=== PATIENT | female | born 1965 | race Two or more races ===

== ENCOUNTER 2018-06-05 04:39 | Inpatient (IN) | payer SELFPAY ==
[~2018-06-05] VITALS: Ht 162.6 cm; Wt 81.6 kg
[2018-06-05] MEDS ORDERED: cloNIDine HCL 0.1 MG TAB ONE (04:53)
[2018-06-05] MEDS ORDERED: cloNIDine HCL 0.1 MG TAB PO ONE (05:00)
[2018-06-05] MEDS ORDERED: ASPirin 81 mg TAB PO ONE ×2 (05:15→13:45)
[2018-06-05 06:14] LABS: Eosinophils # (auto) 0.2 uL; Monocytes # (auto) 0.4 uL
[2018-06-05 06:16] LABS: Basophils # (auto) 0.1 uL; Basophils % (auto) 0.7 % (0.0-2.0); Hematocrit 37.4 % (36.0-46.0); Lymphocytes # (auto) 1.7 uL; Lymphocytes % (auto) 19.9 % (10.0-50.0); Mean Corpuscular Hemoglobin 23.8 pg (28.0-32.0); Mean Corpuscular Hgb Conc. 32.1 g/dL (32.0-36.0); Monocytes % (auto) 4.9 % (0.0-12.0); Neutrophils # (auto) 6.4 uL; Neutrophils % (auto) 72.5 % (37.0-80.0); Red Blood Cells 5.05 10^6/uL (4.0-5.20); Red Cell Distribution Width 17.5 % (11.8-14.3); White Blood Cell 8.8 10^3/uL (4.4-10.8)
[2018-06-05 06:23] LABS: Platelet Count (auto) 199 10^3/uL (140-450)
[2018-06-05 06:32] LABS: INR 0.88 (0.9-1.15); Prothrombin Time 9.5 sec (9.27-12.13)
[2018-06-05 06:44] LABS: Albumin 3.7 g/dL (3.4-5.0); Anion Gap 7 (5-15); Blood Urea Nitrogen 11 mg/dL (7-18); Carbon Dioxide 25 mmol/L (21-32); Chloride 104 mmol/L (98-107); Glucose 313 mg/dL (74-106); Potassium 4.3 mmol/L (3.5-5.1); Sodium 136 mmol/L (136-145)
[2018-06-05 06:55] LABS: Alanine Aminotransferase 28 U/L (13-56); Alkaline Phosphatase 112 U/L (45-117); Aspartate Aminotransferase 39 U/L (15-37); BUN/Creatinine Ratio 16.2; Bilirubin, Total 0.3 mg/dL (0.2-1.0); GFR African American 116 mL/min; GFR Non-African American 96 mL/min; Total Protein 8.6 g/dL (6.4-8.2)
[2018-06-05] MEDS ORDERED: SODIUM CHLORIDE 0.9% 1,000 ML IV SCH (12:59)
[2018-06-05] MEDS ORDERED: PROMETHAZINE HCL 25 MG/ML 1ML IV PRN (13:00)
[2018-06-05] MEDS ORDERED: TEMAZEPAM 15 MG CAP PO PRN (13:00)
[2018-06-05] MEDS ORDERED: LORazepam 0.5 MG TAB PO PRN (13:00)
[2018-06-05] MEDS ORDERED: MORPHINE SULF INJ 2 MG/ML SYRINGE 1ML IV PRN (13:00)
[2018-06-05] MEDS ORDERED: NITROGLYCERIN 0.4 MG SL TAB SL PRN (13:00)
[2018-06-05] MEDS ORDERED: DEXTROSE (50%) 50ML SYRG IV PRN (13:00)
[2018-06-05] MEDS ORDERED: traMADol HCL 50 MG TAB PO PRN (13:00)
[2018-06-05] MEDS ORDERED: ACETAMINOPHEN 500 MG TAB PO PRN (13:00)
[2018-06-05] MEDS ORDERED: METOPROLOL TARTRATE 25 MG TAB PO ONE (13:45)
[2018-06-05] MEDS ORDERED: ENOXAPARIN SOD 40 MG/0.4 ML SYRINGE SC ONE (13:45)
[2018-06-05] MEDS ORDERED: PANTOPRAZOLE 40 MG TAB PO ONE (13:45)
[2018-06-05] MEDS ORDERED: HYDR12.56 (17:01)
[2018-06-05] MEDS ORDERED: INSLANTI (17:01)
[2018-06-05 17:14] VITALS: BP 161/74
[2018-06-05] MEDS ORDERED: InsuLIN REG 1unit/0.01ml Soln (100units/ml) SC SCH (18:00)
[2018-06-05] MEDS ORDERED: ACCU-CHEK COMFORT CURVE STRIP VI SCH (18:00)
[2018-06-05] MEDS ORDERED: METOPROLOL TARTRATE 25 MG TAB PO SCH (22:00)
[2018-06-06] MEDS ORDERED: PANTOPRAZOLE 40 MG TAB PO SCH (10:00)
[2018-06-06] MEDS ORDERED: ASPirin 81 mg TAB PO SCH (10:00)
[2018-06-06] MEDS ORDERED: ENOXAPARIN SOD 40 MG/0.4 ML SYRINGE SC SCH (10:00)
== END 2018-06-05 18:05 | disposition home or self-care (01) | DRG 313 ==
LOC: ER 04:39 → TELE 12:59
PROVIDERS: ADMIT Internal Medicine; ATTEND Internal Medicine
DX: R07.89 Other chest pain (principal); R00.2 Palpitations; E11.9 Type 2 diabetes mellitus without complications; E66.9 Obesity, unspecified; I10 Essential (primary) hypertension; I05.9 Rheumatic mitral valve disease, unspecified; Z68.30 Body mass index [BMI] 30.0-30.9, adult; Z82.49 Family history of ischemic heart disease and other diseases of the circulatory system; Z91.19 Patient's noncompliance with other medical treatment and regimen; Z83.3 Family history of diabetes mellitus; Z98.51 Tubal ligation status
CPT/HCPCS: 36415; 71045; 80053; 82550; 82962; 83036; 83880; 84443; 84484; 85025; 85379; 85610; 85730; 93306; 96360; G0378

== ENCOUNTER → 2018-07-02 | Outpatient (CLI) | payer OTHER ==
[~2018-07-02] MED LIST: HYDR12.56; INSLANTI
[2018-07-02 08:52] LABS: Basophils # (auto) 0 uL; Basophils % (auto) 0.5 % (0.0-2.0); Eosinophils # (auto) 0.2 uL; Hemoglobin 11.4 g/dL (12.2-16.2); Lymphocytes # (auto) 1.3 uL; Monocytes # (auto) 0.3 uL; Monocytes % (auto) 5.4 % (0.0-12.0); Neutrophils # (auto) 3.7 uL
[2018-07-02 08:54] LABS: Eosinophils % (auto) 3.4 % (0.0-7.0); Hematocrit 35.7 % (36.0-46.0); Lymphocytes % (auto) 23.7 % (10.0-50.0); Mean Corpuscular Hemoglobin 23.8 pg (28.0-32.0); Mean Corpuscular Hgb Conc. 31.8 g/dL (32.0-36.0); Mean Corpuscular Volume 74.7 fL (80.0-100.0); Platelet Count (auto) 179 10^3/uL (140-450); Red Blood Cells 4.78 10^6/uL (4.0-5.20); Red Cell Distribution Width 18.9 % (11.8-14.3); White Blood Cell 5.5 10^3/uL (4.4-10.8)
[2018-07-02 09:04] LABS: Albumin 3.7 g/dL (3.4-5.0); Calcium 8.8 mg/dL (8.5-10.1); Potassium 4.2 mmol/L (3.5-5.1); Uric Acid 4.6 mg/dL (2.6-6.0)
[2018-07-02 09:08] LABS: BUN/Creatinine Ratio 23.8; Bilirubin, Total 0.3 mg/dL (0.2-1.0); Total Protein 7.9 g/dL (6.4-8.2)
[2018-07-02 09:19] LABS: Urine Bacteria NONE SEEN /hpf (None Seen); Urine Blood Negative /uL (Negative); Urine Specific Gravity 1.018 (1.001-1.035); Urine WBC <1 /hpf (0 - 5)
== END | disposition home or self-care (01) ==
LOC: LAB 08:17
PROVIDERS: ATTEND Nurse Practitioner
DX: E11.9 Type 2 diabetes mellitus without complications (principal); E78.5 Hyperlipidemia, unspecified; I10 Essential (primary) hypertension
CPT/HCPCS: 36415; 80053; 80061; 81001; 82043; 82306; 83036; 84443; 84550; 85025

== ENCOUNTER → 2018-10-01 | Outpatient (CLI) | payer OTHER ==
[2018-10-01 10:09] LABS: Basophils # (auto) 0 uL; Eosinophils # (auto) 0.2 uL; Hemoglobin 12.1 g/dL (12.2-16.2); Lymphocytes # (auto) 1.7 uL; Neutrophils # (auto) 3.9 uL; Platelet Count (auto) 183 10^3/uL (140-450)
[2018-10-01 10:12] LABS: Basophils % (auto) 0.8 % (0.0-2.0); Eosinophils % (auto) 2.7 % (0.0-7.0); Hematocrit 36.2 % (36.0-46.0); Mean Corpuscular Hemoglobin 27.2 pg (28.0-32.0); Mean Corpuscular Hgb Conc. 33.4 g/dL (32.0-36.0); Mean Corpuscular Volume 81.5 fL (80.0-100.0); Monocytes # (auto) 0.4 uL; Monocytes % (auto) 5.7 % (0.0-12.0); Neutrophils % (auto) 63.8 % (37.0-80.0); Nucleated Red Blood Cells % 0.1 %; Red Blood Cells 4.44 10^6/uL (4.0-5.20); White Blood Cell 6.2 10^3/uL (4.4-10.8)
[2018-10-01 10:15] LABS: Urine Bacteria NONE SEEN /hpf (None Seen); Urine Blood 2+ /uL (Negative); Urine Specific Gravity 1.022 (1.001-1.035); Urine WBC 19 /hpf (0 - 5)
[2018-10-01 10:33] LABS: Potassium 4.3 mmol/L (3.5-5.1)
[2018-10-01 10:39] LABS: Albumin 3.5 g/dL (3.4-5.0); Bilirubin, Total 0.4 mg/dL (0.2-1.0); Calcium 8.9 mg/dL (8.5-10.1); Total Protein 7.4 g/dL (6.4-8.2)
== END | disposition home or self-care (01) ==
LOC: LAB 09:10
PROVIDERS: ATTEND Nurse Practitioner
DX: E78.5 Hyperlipidemia, unspecified (principal); E11.9 Type 2 diabetes mellitus without complications
CPT/HCPCS: 36415; 80053; 80061; 81001; 82043; 82306; 83036; 84443; 85025

== ENCOUNTER → 2018-10-07 | Outpatient (CLI) | payer OTHER ==
[2018-10-07 12:36] LABS: Follicle Stimulating Hormone 21.06 IU/L (SEE BELOW); Leuteinizing Hormone 12.9 IU/L
== END | disposition home or self-care (01) ==
LOC: LAB 10:36
PROVIDERS: ATTEND Obstetrics & Gynecology
DX: N95.1 Menopausal and female climacteric states (principal)
CPT/HCPCS: 36415; 82670; 83001; 83002; 84403; 84443

== ENCOUNTER → 2018-10-29 | Outpatient (CLI) | payer OTHER ==
[2018-10-29 09:04] LABS: Basophils # (auto) 0.1 uL; Basophils % (auto) 0.7 % (0.0-2.0); Eosinophils # (auto) 0.3 uL; Eosinophils % (auto) 3.8 % (0.0-7.0); Hematocrit 35.5 % (36.0-46.0); Hemoglobin 11.7 g/dL (12.2-16.2); Lymphocytes # (auto) 1.9 uL; Lymphocytes % (auto) 25.3 % (10.0-50.0); Mean Corpuscular Hemoglobin 27.1 pg (28.0-32.0); Mean Corpuscular Volume 82.1 fL (80.0-100.0); Monocytes # (auto) 0.3 uL; Monocytes % (auto) 4.3 % (0.0-12.0); Neutrophils # (auto) 4.9 uL; Neutrophils % (auto) 65.9 % (37.0-80.0); Platelet Count (auto) 201 10^3/uL (140-450); Red Blood Cells 4.33 10^6/uL (4.0-5.20); Red Cell Distribution Width 16.2 % (11.8-14.3); White Blood Cell 7.5 10^3/uL (4.4-10.8)
[2018-10-29 09:07] LABS: Urine Bacteria NONE SEEN /hpf (None Seen); Urine Blood 2+ /uL (Negative); Urine Specific Gravity 1.013 (1.001-1.035); Urine WBC 1 /hpf (0 - 5)
[2018-10-29 09:30] LABS: Albumin 3.4 g/dL (3.4-5.0); Calcium 8.7 mg/dL (8.5-10.1); Potassium 4.2 mmol/L (3.5-5.1)
[2018-10-29 09:35] LABS: Bilirubin, Total 0.4 mg/dL (0.2-1.0); Total Protein 7.5 g/dL (6.4-8.2)
== END | disposition home or self-care (01) ==
LOC: LAB 08:48
PROVIDERS: ATTEND Nurse Practitioner
DX: E11.9 Type 2 diabetes mellitus without complications (principal); E78.5 Hyperlipidemia, unspecified
CPT/HCPCS: 36415; 80053; 80061; 81001; 83036; 84443; 85025

== ENCOUNTER 2018-12-12 21:02 | Inpatient (IN) | payer OTHER ==
[~2018-12-12] VITALS: Ht 157.5 cm; Wt 92.8 kg
[2018-12-12 21:36] LABS: Basophils # (auto) 0 uL; Basophils % (auto) 0.5 % (0.0-2.0); Eosinophils # (auto) 0.2 uL; Eosinophils % (auto) 2.4 % (0.0-7.0); Hematocrit 36.9 % (36.0-46.0); Hemoglobin 12.6 g/dL (12.2-16.2); Lymphocytes # (auto) 2.5 uL; Lymphocytes % (auto) 27.2 % (10.0-50.0); Mean Corpuscular Hemoglobin 27.5 pg (28.0-32.0); Mean Corpuscular Hgb Conc. 34.1 g/dL (32.0-36.0); Mean Corpuscular Volume 80.6 fL (80.0-100.0); Monocytes # (auto) 0.4 uL; Monocytes % (auto) 4.8 % (0.0-12.0); Neutrophils % (auto) 65.1 % (37.0-80.0); Platelet Count (auto) 191 10^3/uL (140-450); Red Blood Cells 4.58 10^6/uL (4.0-5.20); Red Cell Distribution Width 16.1 % (11.8-14.3); White Blood Cell 9.1 10^3/uL (4.4-10.8)
[2018-12-12 21:52] LABS: Albumin 3.8 g/dL (3.4-5.0); Anion Gap 4 (5-15); Blood Urea Nitrogen 22 mg/dL (7-18); Calcium 8.9 mg/dL (8.5-10.1); Carbon Dioxide 29 mmol/L (21-32); Chloride 106 mmol/L (98-107); Glucose 154 mg/dL (74-106); Magnesium 2.2 mg/dL (1.6-2.6); Potassium 4.2 mmol/L (3.5-5.1); Sodium 139 mmol/L (136-145)
[2018-12-12 21:58] LABS: Alanine Aminotransferase 21 U/L (13-56); Alkaline Phosphatase 94 U/L (45-117); Aspartate Aminotransferase 16 U/L (15-37); BUN/Creatinine Ratio 28.2; Bilirubin, Total 0.4 mg/dL (0.2-1.0); GFR African American 99 mL/min; GFR Non-African American 82 mL/min; Total Protein 7.9 g/dL (6.4-8.2)
[2018-12-13] MEDS ORDERED: cloNIDine HCL 0.1 MG TAB PO PRN (06:15)
[2018-12-13] MEDS ORDERED: NITROGLYCERIN 0.4 MG SL TAB SL PRN (06:15)
[2018-12-13] MEDS ORDERED: MORPHINE SULF INJ 2 MG/ML SYRINGE 1ML IV PRN (06:15)
[2018-12-13] MEDS ORDERED: DEXTROSE (50%) 50ML SYRG IV PRN (06:15)
[2018-12-13] MEDS ORDERED: SODIUM CHLORIDE 0.9% 1,000 ML IV SCH (07:00)
[2018-12-13] MEDS: ASPirin 81 mg TAB PO SCH (09:41)
[2018-12-13] MEDS: LISINOPRIL 20 MG TAB PO SCH (09:41)
[2018-12-13] MEDS: FAMOTIDINE 20 MG TAB PO SCH ×2 (09:41→21:13)
[2018-12-13] MEDS: HCTZ 25 MG TAB PO SCH (09:42)
[2018-12-13] MEDS ORDERED: METO25TA5 PO (09:50)
[2018-12-13] MEDS ORDERED: METF-370 PO (09:50)
[2018-12-13] MEDS ORDERED: ASPI81CH43 PO (09:50)
[2018-12-13] MEDS ORDERED: CALC500C71 PO (09:50)
[2018-12-13] MEDS: ACCU-CHEK COMFORT CURVE STRIP VI SCH ×3 (11:29→23:52)
[2018-12-13] MEDS: InsuLIN REG 1unit/0.01ml Soln (100units/ml) SC SCH ×3 (11:29→23:52)
[2018-12-13 13:05] VITALS: BP 160/86
[2018-12-13] MEDS: SODIUM CHLOR 0.9% PF (SALINE LOCK) 10ML VIAL/SYR IV SCH ×2 (14:07→21:13)
[2018-12-13] MEDS ORDERED: LORazepam 0.5 MG TAB PO ONE (16:00)
[2018-12-13 16:03] LABS: Urine WBC None Seen /hpf (0 - 5)
[2018-12-13 16:19] LABS: Urine Bacteria FEW /hpf (None Seen); Urine Blood Negative /uL (Negative); Urine Specific Gravity 1.007 (1.001-1.035)
[2018-12-13 16:27] VITALS: BP 162/78
[2018-12-13] MEDS: ATORVASTATIN 20 MG TAB PO SCH (21:13)
[2018-12-13] MEDS: TEMAZEPAM 15 MG CAP PO PRN (21:13)
[2018-12-13 23:56] VITALS: BP 105/51
[2018-12-14 05:02] VITALS: BP 125/77
[2018-12-14] MEDS: InsuLIN REG 1unit/0.01ml Soln (100units/ml) SC SCH ×4 (05:56→23:46)
[2018-12-14] MEDS: SODIUM CHLOR 0.9% PF (SALINE LOCK) 10ML VIAL/SYR IV SCH ×3 (05:56→21:08)
[2018-12-14] MEDS: ACCU-CHEK COMFORT CURVE STRIP VI SCH ×4 (05:56→23:45)
[2018-12-14 07:43] LABS: Basophils # (auto) 0 uL; Basophils % (auto) 0.5 % (0.0-2.0); Eosinophils # (auto) 0.2 uL; Eosinophils % (auto) 3.1 % (0.0-7.0); Hematocrit 36.7 % (36.0-46.0); Hemoglobin 12.3 g/dL (12.2-16.2); Lymphocytes # (auto) 1.9 uL; Lymphocytes % (auto) 30.9 % (10.0-50.0); Mean Corpuscular Hemoglobin 27.3 pg (28.0-32.0); Mean Corpuscular Hgb Conc. 33.6 g/dL (32.0-36.0); Mean Corpuscular Volume 81.4 fL (80.0-100.0); Monocytes # (auto) 0.4 uL; Monocytes % (auto) 6.4 % (0.0-12.0); Neutrophils # (auto) 3.5 uL; Neutrophils % (auto) 59.1 % (37.0-80.0); Platelet Count (auto) 179 10^3/uL (140-450); Red Blood Cells 4.51 10^6/uL (4.0-5.20); Red Cell Distribution Width 15.9 % (11.8-14.3)
[2018-12-14 07:54] LABS: Calcium 8.8 mg/dL (8.5-10.1); Potassium 4.1 mmol/L (3.5-5.1)
[2018-12-14 08:02] LABS: INR 0.97 (0.9-1.15)
[2018-12-14 09:00] VITALS: BP 138/69
[2018-12-14] MEDS: ASPirin 81 mg TAB PO SCH (09:41)
[2018-12-14] MEDS: HCTZ 25 MG TAB PO SCH (09:42)
[2018-12-14] MEDS: LISINOPRIL 20 MG TAB PO SCH (09:42)
[2018-12-14] MEDS: FAMOTIDINE 20 MG TAB PO SCH ×2 (09:42→21:08)
[2018-12-14 13:00] VITALS: BP 153/75
[2018-12-14 17:00] VITALS: BP 153/81
[2018-12-14] MEDS: ATORVASTATIN 20 MG TAB PO SCH (21:08)
[2018-12-14] MEDS: TEMAZEPAM 15 MG CAP PO PRN (21:09)
[2018-12-14 22:00] VITALS: BP 143/67
[2018-12-15 05:00] VITALS: BP 120/67
[2018-12-15] MEDS: SODIUM CHLOR 0.9% PF (SALINE LOCK) 10ML VIAL/SYR IV SCH ×3 (05:57→22:00)
[2018-12-15] MEDS: InsuLIN REG 1unit/0.01ml Soln (100units/ml) SC SCH ×4 (05:58→23:52)
[2018-12-15] MEDS: ACCU-CHEK COMFORT CURVE STRIP VI SCH ×4 (05:58→23:52)
[2018-12-15 06:12] LABS: Basophils # (auto) 0 uL; Basophils % (auto) 0.4 % (0.0-2.0); Eosinophils # (auto) 0.2 uL; Eosinophils % (auto) 2.9 % (0.0-7.0); Hematocrit 36.2 % (36.0-46.0); Hemoglobin 12.4 g/dL (12.2-16.2); Lymphocytes # (auto) 1.4 uL; Lymphocytes % (auto) 25.9 % (10.0-50.0); Mean Corpuscular Hemoglobin 27.6 pg (28.0-32.0); Mean Corpuscular Hgb Conc. 34.2 g/dL (32.0-36.0); Mean Corpuscular Volume 80.7 fL (80.0-100.0); Monocytes # (auto) 0.4 uL; Monocytes % (auto) 7.9 % (0.0-12.0); Neutrophils # (auto) 3.5 uL; Neutrophils % (auto) 62.9 % (37.0-80.0); Platelet Count (auto) 175 10^3/uL (140-450); Red Blood Cells 4.48 10^6/uL (4.0-5.20); Red Cell Distribution Width 15.6 % (11.8-14.3); White Blood Cell 5.5 10^3/uL (4.4-10.8)
[2018-12-15 06:21] LABS: Anion Gap 8 (5-15); Blood Urea Nitrogen 16 mg/dL (7-18); Calcium 8.7 mg/dL (8.5-10.1); Carbon Dioxide 24 mmol/L (21-32); Chloride 106 mmol/L (98-107); Glucose 166 mg/dL (74-106); Potassium 3.7 mmol/L (3.5-5.1); Sodium 138 mmol/L (136-145)
[2018-12-15 06:23] LABS: BUN/Creatinine Ratio 27.1; GFR African American 137 mL/min; GFR Non-African American 113 mL/min
[2018-12-15] MEDS ORDERED: LIDOCAINE 2%HCL (LOCAL ANESTH.) INJ 20ML MDV ONE (07:57)
[2018-12-15] MEDS ORDERED: IODIXANOL 320MG/ML 100ML BTL IV ONE (07:57)
[2018-12-15] MEDS ORDERED: ANGIOMAX 250 MG VIAL IV ONE (08:37)
[2018-12-15] MEDS ORDERED: fentaNYL CITRATE 100 MCG/2 ML VL ONE ×2 (08:37→09:41)
[2018-12-15] MEDS ORDERED: VERAPAMIL 2.5MG/ML INJ 2ML VIAL IV ONE (08:37)
[2018-12-15] MEDS ORDERED: MIDAZOLAM HCL 1MG/1ML-2 ML VIAL ONE ×2 (08:37→09:41)
[2018-12-15] MEDS ORDERED: IOHEXOL 350 MG/ML 100ML IJ ONE (08:38)
[2018-12-15] MEDS ORDERED: SODIUM CHL 0.9% 50 ML ONE (08:38)
[2018-12-15] MEDS ORDERED: HEPARIN SODIUM (PORCINE) 5000 UNITS/ML 1ML VIAL ONE (09:00)
[2018-12-15] MEDS: FAMOTIDINE 20 MG TAB PO SCH ×2 (09:38→22:00)
[2018-12-15] MEDS: ASPirin 81 mg TAB PO SCH (09:38)
[2018-12-15] MEDS: HCTZ 25 MG TAB PO SCH (09:38)
[2018-12-15] MEDS ORDERED: ONDANSETRON HCL 4 MG/2 ML VIAL ONE (09:42)
[2018-12-15] MEDS: LISINOPRIL 20 MG TAB PO SCH (09:42)
[2018-12-15] MEDS ORDERED: CLOPIDOGREL 300 MG TAB ONE (09:59)
[2018-12-15 17:00] VITALS: BP 119/69
[2018-12-15] MEDS ORDERED: LORazepam 2MG/ML-1ML VIAL IV PRN (20:15)
[2018-12-15] MEDS: ATORVASTATIN 20 MG TAB PO SCH (22:00)
[2018-12-15 22:06] VITALS: BP 143/67
[2018-12-15] MEDS: ONDANSETRON HCL 4 MG/2 ML VIAL IV PRN (23:51)
[2018-12-16] MEDS: ACETAMINOPHEN 325 MG TAB PO PRN (05:08)
[2018-12-16 05:38] VITALS: BP 141/77
[2018-12-16] MEDS: InsuLIN REG 1unit/0.01ml Soln (100units/ml) SC SCH ×4 (05:43→23:28)
[2018-12-16] MEDS: ACCU-CHEK COMFORT CURVE STRIP VI SCH ×4 (05:43→23:28)
[2018-12-16] MEDS: SODIUM CHLOR 0.9% PF (SALINE LOCK) 10ML VIAL/SYR IV SCH ×3 (05:45→23:27)
[2018-12-16 06:19] LABS: Basophils # (auto) 0 uL; Basophils % (auto) 0.3 % (0.0-2.0); Eosinophils # (auto) 0 uL; Eosinophils % (auto) 0.3 % (0.0-7.0); Hematocrit 36.2 % (36.0-46.0); Hemoglobin 12.7 g/dL (12.2-16.2); Lymphocytes # (auto) 1.1 uL; Lymphocytes % (auto) 13.5 % (10.0-50.0); Mean Corpuscular Hgb Conc. 35.1 g/dL (32.0-36.0); Mean Corpuscular Volume 79.9 fL (80.0-100.0); Monocytes # (auto) 0.4 uL; Monocytes % (auto) 5.5 % (0.0-12.0); Neutrophils # (auto) 6.5 uL; Neutrophils % (auto) 80.4 % (37.0-80.0); Platelet Count (auto) 176 10^3/uL (140-450); Red Blood Cells 4.53 10^6/uL (4.0-5.20); Red Cell Distribution Width 15.4 % (11.8-14.3); White Blood Cell 8.1 10^3/uL (4.4-10.8)
[2018-12-16 06:34] LABS: Albumin 3.7 g/dL (3.4-5.0); Calcium 8.6 mg/dL (8.5-10.1); Potassium 3.6 mmol/L (3.5-5.1)
[2018-12-16 06:45] LABS: BUN/Creatinine Ratio 15.4; Bilirubin, Total 0.7 mg/dL (0.2-1.0); Total Protein 7.7 g/dL (6.4-8.2)
[2018-12-16 09:25] VITALS: BP 136/69
[2018-12-16] MEDS: ASPirin 81 mg TAB PO SCH (10:00)
[2018-12-16] MEDS: CLOPIDOGREL BISULFATE 75 MG TAB PO SCH (12:22)
[2018-12-16] MEDS: FAMOTIDINE 20 MG TAB PO SCH ×2 (12:22→22:00)
[2018-12-16 13:00] VITALS: BP 149/73
[2018-12-16] MEDS: ASPirin-EC 81 mg tab PO SCH (13:08)
[2018-12-16] MEDS: LISINOPRIL 20 MG TAB PO SCH (13:14)
[2018-12-16] MEDS: HCTZ 25 MG TAB PO SCH (13:15)
[2018-12-16] MEDS: ONDANSETRON HCL 4 MG/2 ML VIAL IV PRN (15:49)
[2018-12-16 17:30] VITALS: BP 138/60
[2018-12-16] MEDS ORDERED: SODIUM CHLORIDE 0.9% 500 ML IV ONE (18:15)
[2018-12-16] MEDS ORDERED: PROMETHAZINE HCL 25 MG/ML 1ML IV PRN (18:15)
[2018-12-16] MEDS ORDERED: MORPHINE SULFATE 4 MG/ML SYR/VIAL IV PRN (20:30)
[2018-12-16] MEDS: ATORVASTATIN 20 MG TAB PO SCH (22:00)
[2018-12-16 23:50] VITALS: BP 132/72
[2018-12-17] MEDS: SODIUM CHLOR 0.9% PF (SALINE LOCK) 10ML VIAL/SYR IV SCH ×3 (05:49→20:57)
[2018-12-17] MEDS: ACCU-CHEK COMFORT CURVE STRIP VI SCH ×3 (05:50→17:55)
[2018-12-17] MEDS: InsuLIN REG 1unit/0.01ml Soln (100units/ml) SC SCH ×3 (05:57→17:56)
[2018-12-17 05:59] VITALS: BP 132/80
[2018-12-17 06:09] LABS: Basophils # (auto) 0 uL; Basophils % (auto) 0.5 % (0.0-2.0); Eosinophils # (auto) 0.1 uL; Eosinophils % (auto) 0.9 % (0.0-7.0); Hematocrit 34.7 % (36.0-46.0); Hemoglobin 11.6 g/dL (12.2-16.2); Lymphocytes # (auto) 1.5 uL; Lymphocytes % (auto) 19.4 % (10.0-50.0); Mean Corpuscular Hemoglobin 27.7 pg (28.0-32.0); Mean Corpuscular Hgb Conc. 33.4 g/dL (32.0-36.0); Mean Corpuscular Volume 82.7 fL (80.0-100.0); Monocytes # (auto) 0.6 uL; Monocytes % (auto) 7.7 % (0.0-12.0); Neutrophils # (auto) 5.4 uL; Neutrophils % (auto) 71.5 % (37.0-80.0); Platelet Count (auto) 159 10^3/uL (140-450); Red Cell Distribution Width 15.6 % (11.8-14.3); White Blood Cell 7.6 10^3/uL (4.4-10.8)
[2018-12-17 06:31] LABS: Albumin 3.4 g/dL (3.4-5.0); BUN/Creatinine Ratio 17.5; Calcium 8.5 mg/dL (8.5-10.1); Potassium 3.6 mmol/L (3.5-5.1)
[2018-12-17 06:34] LABS: Bilirubin, Total 0.5 mg/dL (0.2-1.0); Total Protein 7.3 g/dL (6.4-8.2)
[2018-12-17] MEDS: HCTZ 25 MG TAB PO SCH (08:36)
[2018-12-17] MEDS: LISINOPRIL 20 MG TAB PO SCH ×2 (08:37→20:56)
[2018-12-17 09:00] VITALS: BP 163/78
[2018-12-17] MEDS: ASPirin-EC 81 mg tab PO SCH (09:33)
[2018-12-17] MEDS: ASPirin 81 mg TAB PO SCH (09:33)
[2018-12-17] MEDS: FAMOTIDINE 20 MG TAB PO SCH ×2 (09:34→20:55)
[2018-12-17] MEDS: CLOPIDOGREL BISULFATE 75 MG TAB PO SCH (09:34)
[2018-12-17] MEDS ORDERED: cefTRIAXone 1GM/50ML D5W 50 ML IV ONE (10:15)
[2018-12-17] MEDS: ACETAMINOPHEN 325 MG TAB PO PRN ×2 (11:12→20:56)
[2018-12-17 12:00] VITALS: BP 144/67
[2018-12-17 17:00] VITALS: BP 154/68
[2018-12-17] MEDS: ATORVASTATIN 20 MG TAB PO SCH (20:56)
[2018-12-17 22:00] VITALS: BP 126/61
[2018-12-18] MEDS: InsuLIN REG 1unit/0.01ml Soln (100units/ml) SC SCH ×4 (00:25→17:41)
[2018-12-18] MEDS: ACCU-CHEK COMFORT CURVE STRIP VI SCH ×4 (00:25→17:34)
[2018-12-18 05:00] VITALS: BP 143/72
[2018-12-18] MEDS: SODIUM CHLOR 0.9% PF (SALINE LOCK) 10ML VIAL/SYR IV SCH ×3 (05:46→22:04)
[2018-12-18 06:13] LABS: Basophils # (auto) 0 uL; Basophils % (auto) 0.6 % (0.0-2.0); Eosinophils # (auto) 0.1 uL; Eosinophils % (auto) 1.6 % (0.0-7.0); Hematocrit 35.3 % (36.0-46.0); Hemoglobin 12.1 g/dL (12.2-16.2); Lymphocytes # (auto) 1.8 uL; Lymphocytes % (auto) 24.3 % (10.0-50.0); Mean Corpuscular Hemoglobin 28.2 pg (28.0-32.0); Mean Corpuscular Hgb Conc. 34.1 g/dL (32.0-36.0); Mean Corpuscular Volume 82.6 fL (80.0-100.0); Monocytes # (auto) 0.5 uL; Neutrophils # (auto) 4.9 uL; Neutrophils % (auto) 66.5 % (37.0-80.0); Nucleated Red Blood Cells % 0.1 %; Platelet Count (auto) 168 10^3/uL (140-450); Red Blood Cells 4.28 10^6/uL (4.0-5.20); Red Cell Distribution Width 15.8 % (11.8-14.3); White Blood Cell 7.3 10^3/uL (4.4-10.8)
[2018-12-18 06:27] LABS: Potassium 3.6 mmol/L (3.5-5.1)
[2018-12-18 06:35] LABS: BUN/Creatinine Ratio 18.2; Calcium 8.7 mg/dL (8.5-10.1)
[2018-12-18] MEDS: cefTRIAXone 1GM/50ML D5W 50 ML IV SCH (08:32)
[2018-12-18 09:00] VITALS: BP 163/70
[2018-12-18] MEDS: ASPirin 81 mg TAB PO SCH (09:48)
[2018-12-18] MEDS: FAMOTIDINE 20 MG TAB PO SCH ×2 (09:48→22:05)
[2018-12-18] MEDS: ASPirin-EC 81 mg tab PO SCH (09:48)
[2018-12-18] MEDS: HCTZ 25 MG TAB PO SCH (09:48)
[2018-12-18] MEDS: CLOPIDOGREL BISULFATE 75 MG TAB PO SCH (09:49)
[2018-12-18] MEDS: LISINOPRIL 20 MG TAB PO SCH ×2 (09:49→22:05)
[2018-12-18 13:00] VITALS: BP 132/72
[2018-12-18 17:00] VITALS: BP 158/97
[2018-12-18 21:30] VITALS: BP_SYST 153; BP_SYST 158; BP_DIAS 70; BP_DIAS 74
[2018-12-18] MEDS: ATORVASTATIN 20 MG TAB PO SCH (22:04)
[2018-12-19] MEDS: ACCU-CHEK COMFORT CURVE STRIP VI SCH ×5 (00:08→23:51)
[2018-12-19] MEDS: InsuLIN REG 1unit/0.01ml Soln (100units/ml) SC SCH ×5 (00:09→23:53)
[2018-12-19 05:50] VITALS: BP_SYST 149; BP_SYST 153; BP_DIAS 69; BP_DIAS 72
[2018-12-19] MEDS: SODIUM CHLOR 0.9% PF (SALINE LOCK) 10ML VIAL/SYR IV SCH ×3 (06:09→22:57)
[2018-12-19 09:00] VITALS: BP 149/74
[2018-12-19] MEDS: ASPirin-EC 81 mg tab PO SCH (10:00)
[2018-12-19] MEDS: cefTRIAXone 1GM/50ML D5W 50 ML IV SCH (10:41)
[2018-12-19] MEDS: FAMOTIDINE 20 MG TAB PO SCH ×2 (10:42→22:53)
[2018-12-19] MEDS: CLOPIDOGREL BISULFATE 75 MG TAB PO SCH (10:43)
[2018-12-19] MEDS: LISINOPRIL 20 MG TAB PO SCH ×2 (10:43→22:57)
[2018-12-19] MEDS: HCTZ 25 MG TAB PO SCH (10:44)
[2018-12-19] MEDS: ASPirin 81 mg TAB PO SCH (10:47)
[2018-12-19 13:00] VITALS: BP 148/71
[2018-12-19] MEDS ORDERED: ZOLPIDEM TARTRATE 5 MG TAB PO PRN (13:00)
[2018-12-19 17:00] VITALS: BP 121/61
[2018-12-19] MEDS: HYDROcodone-ACET 5/325MG TAB PO PRN (21:13)
[2018-12-19 22:00] VITALS: BP 159/68
[2018-12-19] MEDS: ATORVASTATIN 20 MG TAB PO SCH (22:53)
[2018-12-20 04:44] VITALS: BP 109/63
[2018-12-20] MEDS: ACCU-CHEK COMFORT CURVE STRIP VI SCH (05:35)
[2018-12-20] MEDS: SODIUM CHLOR 0.9% PF (SALINE LOCK) 10ML VIAL/SYR IV SCH (05:35)
[2018-12-20] MEDS: InsuLIN REG 1unit/0.01ml Soln (100units/ml) SC SCH (05:49)
[2018-12-20] MEDS: HYDROcodone-ACET 5/325MG TAB PO PRN (05:53)
[2018-12-20 09:00] VITALS: BP 109/65
[2018-12-20] MEDS: FAMOTIDINE 20 MG TAB PO SCH (09:33)
[2018-12-20] MEDS: CLOPIDOGREL BISULFATE 75 MG TAB PO SCH (09:33)
[2018-12-20] MEDS: HCTZ 25 MG TAB PO SCH (09:39)
[2018-12-20] MEDS: ASPirin-EC 81 mg tab PO SCH (09:40)
[2018-12-20] MEDS: LISINOPRIL 20 MG TAB PO SCH (10:00)
[2018-12-20 11:23] VITALS: BP 109/65
[2018-12-20 11:32] LABS: Cholesterol 104 mg/dL (< 200)
[2018-12-20 11:35] LABS: HDL Cholesterol 30 mg/dL (40-59); LDL Cholesterol 66 mg/dL (< 100); Triglycerides 91 mg/dL (< 150)
[2018-12-20] MEDS ORDERED: CEPHALEXIN 250 MG CAP PO SCH (12:00)
== END 2018-12-20 12:53 | disposition home or self-care (01) | DRG 246 ==
LOC: ER 21:05 → TELE 21:06 → TELE-WESTW 12-13 09:26
PROVIDERS: ADMIT Nurse Practitioner; ATTEND Internal Medicine Pulmonary Disease
PROC: 027135Z Dilation of Coronary Artery, Two Arteries with Two Drug-eluting Intraluminal Devices, Percutaneous Approach (ICD-10-PCS; principal; 2018-12-15)
PROC: 02C03ZZ Extirpation of Matter from Coronary Artery, One Artery, Percutaneous Approach (ICD-10-PCS; 2018-12-15)
PROC: 4A023N7 Measurement of Cardiac Sampling and Pressure, Left Heart, Percutaneous Approach (ICD-10-PCS; 2018-12-15)
PROC: B2111ZZ Fluoroscopy of Multiple Coronary Arteries using Low Osmolar Contrast (ICD-10-PCS; 2018-12-15)
PROC: B2151ZZ Fluoroscopy of Left Heart using Low Osmolar Contrast (ICD-10-PCS; 2018-12-15)
DX: I25.10 Atherosclerotic heart disease of native coronary artery without angina pectoris (principal); G93.6 Cerebral edema; I63.511 Cerebral infarction due to unspecified occlusion or stenosis of right middle cerebral artery; I10 Essential (primary) hypertension; E11.21 Type 2 diabetes mellitus with diabetic nephropathy; E66.9 Obesity, unspecified; E78.5 Hyperlipidemia, unspecified; G51.0 Bell's palsy; R26.9 Unspecified abnormalities of gait and mobility; R23.3 Spontaneous ecchymoses; R13.10 Dysphagia, unspecified; G47.00 Insomnia, unspecified; Z88.7 Allergy status to serum and vaccine; Z68.37 Body mass index [BMI] 37.0-37.9, adult; Z98.51 Tubal ligation status; Z82.3 Family history of stroke; Z83.3 Family history of diabetes mellitus; Z82.49 Family history of ischemic heart disease and other diseases of the circulatory system; Z79.02 Long term (current) use of antithrombotics/antiplatelets; Z79.899 Other long term (current) drug therapy
CPT/HCPCS: 36415; 70450; 70551; 71045; 76775; 80048; 80053; 80061; 81001; 82962; 83036; 83735; 83880; 84443; 84484; 85025; 85610; 86850; 86900; 86901; 87086; 92507; 92610; 93005; 93306; 93886; 94660; 95819; 97116; 97163; 97530; 99152; 99153; C1874; C1887; G0378; J0696; J1815; J2250; J2405; Q9967

== ENCOUNTER 2019-01-14 14:07 | Emergency (ER) | payer OTHER ==
[~2019-01-14] VITALS: Ht 160 cm; Wt 84.8 kg
[~2019-01-14 14:07] MED LIST changes: +ASPI81CH43 PO; +CALC500C71 PO; +METF-370 PO; +METO25TA5 PO
[2019-01-14 23:25] LABS: Basophils # (auto) 0 uL; Basophils % (auto) 0.7 % (0.0-2.0); Eosinophils # (auto) 0.2 uL; Eosinophils % (auto) 2.4 % (0.0-7.0); Hematocrit 40.3 % (36.0-46.0); Hemoglobin 13.4 g/dL (12.2-16.2); Lymphocytes # (auto) 1.8 uL; Lymphocytes % (auto) 26.7 % (10.0-50.0); Mean Corpuscular Hgb Conc. 33.4 g/dL (32.0-36.0); Mean Corpuscular Volume 83.9 fL (80.0-100.0); Monocytes # (auto) 0.5 uL; Monocytes % (auto) 7.7 % (0.0-12.0); Neutrophils # (auto) 4.2 uL; Neutrophils % (auto) 62.5 % (37.0-80.0); Platelet Count (auto) 174 10^3/uL (140-450); Red Cell Distribution Width 16.7 % (11.8-14.3); White Blood Cell 6.8 10^3/uL (4.4-10.8)
[2019-01-14 23:34] VITALS: BP 160/67
[2019-01-14 23:44] LABS: Albumin 4.3 g/dL (3.4-5.0); BUN/Creatinine Ratio 17.7; Calcium 9.1 mg/dL (8.5-10.1); Potassium 3.9 mmol/L (3.5-5.1)
[2019-01-14 23:47] LABS: Bilirubin, Total 0.7 mg/dL (0.2-1.0); Total Protein 8.7 g/dL (6.4-8.2)
== END 2019-01-15 02:15 | disposition home or self-care (01) ==
LOC: ER 14:07
DX: K59.00 Constipation, unspecified (principal); K62.5 Hemorrhage of anus and rectum; E11.9 Type 2 diabetes mellitus without complications; E78.5 Hyperlipidemia, unspecified; I10 Essential (primary) hypertension; Z98.51 Tubal ligation status; Z86.73 Personal history of transient ischemic attack (TIA), and cerebral infarction without residual deficits; Z79.82 Long term (current) use of aspirin; Z79.4 Long term (current) use of insulin; Z79.899 Other long term (current) drug therapy
CPT/HCPCS: 36415; 74176; 80053; 85025

== ENCOUNTER → 2019-02-24 | Outpatient (CLI) | payer OTHER ==
[2019-02-24 09:49] LABS: Basophils # (auto) 0 uL; Basophils % (auto) 0.5 % (0.0-2.0); Eosinophils # (auto) 0.1 uL; Eosinophils % (auto) 2.6 % (0.0-7.0); Hematocrit 38.7 % (36.0-46.0); Lymphocytes # (auto) 1.4 uL; Lymphocytes % (auto) 28.1 % (10.0-50.0); Mean Corpuscular Hemoglobin 28.4 pg (28.0-32.0); Mean Corpuscular Hgb Conc. 33.6 g/dL (32.0-36.0); Mean Corpuscular Volume 84.6 fL (80.0-100.0); Monocytes # (auto) 0.2 uL; Monocytes % (auto) 4.9 % (0.0-12.0); Neutrophils # (auto) 3.1 uL; Neutrophils % (auto) 63.9 % (37.0-80.0); Platelet Count (auto) 175 10^3/uL (140-450); Red Blood Cells 4.57 10^6/uL (4.0-5.20); Red Cell Distribution Width 16.5 % (11.8-14.3); White Blood Cell 4.9 10^3/uL (4.4-10.8)
[2019-02-24 10:09] LABS: Urine Bacteria FEW /hpf (None Seen); Urine Blood Negative /uL (Negative); Urine Mucus FEW (None Seen); Urine WBC 154 /hpf (0 - 5)
[2019-02-24 10:14] LABS: Albumin 3.8 g/dL (3.4-5.0); Calcium 8.8 mg/dL (8.5-10.1); Potassium 3.9 mmol/L (3.5-5.1)
[2019-02-24 10:19] LABS: BUN/Creatinine Ratio 9.4; Bilirubin, Total 0.6 mg/dL (0.2-1.0); Total Protein 7.3 g/dL (6.4-8.2)
== END | disposition home or self-care (01) ==
LOC: LAB 09:33
PROVIDERS: ATTEND Nurse Practitioner
DX: E11.9 Type 2 diabetes mellitus without complications (principal); E78.5 Hyperlipidemia, unspecified
CPT/HCPCS: 36415; 80053; 80061; 81001; 82043; 83036; 84443; 85025

== ENCOUNTER 2019-04-24 05:05 | Emergency (ER) | payer OTHER ==
[~2019-04-24] VITALS: Ht 152.4 cm; Wt 78.9 kg
[2019-04-24 06:47] VITALS: BP 145/62
[2019-04-24 07:12] LABS: Basophils # (auto) 0 uL; Basophils % (auto) 0.7 % (0.0-2.0); Eosinophils # (auto) 0.1 uL; Eosinophils % (auto) 2.2 % (0.0-7.0); Hemoglobin 11.8 g/dL (12.2-16.2); Lymphocytes # (auto) 1.2 uL; Lymphocytes % (auto) 19.2 % (10.0-50.0); Mean Corpuscular Hemoglobin 29.1 pg (28.0-32.0); Mean Corpuscular Hgb Conc. 33.7 g/dL (32.0-36.0); Mean Corpuscular Volume 86.3 fL (80.0-100.0); Monocytes # (auto) 0.3 uL; Monocytes % (auto) 4.8 % (0.0-12.0); Neutrophils # (auto) 4.7 uL; Neutrophils % (auto) 73.1 % (37.0-80.0); Platelet Count (auto) 178 10^3/uL (140-450); Red Blood Cells 4.06 10^6/uL (4.0-5.20); White Blood Cell 6.4 10^3/uL (4.4-10.8)
[2019-04-24 07:29] LABS: Urine Bacteria FEW /hpf (None Seen); Urine Blood Negative /uL (Negative); Urine Specific Gravity 1.014 (1.001-1.035); Urine WBC 6 /hpf (0 - 5)
[2019-04-24 07:30] LABS: Alanine Aminotransferase 20 U/L (13-56); Albumin 3.8 g/dL (3.4-5.0); Anion Gap 7 (5-15); Aspartate Aminotransferase 10 U/L (15-37); BUN/Creatinine Ratio 28.3; Blood Urea Nitrogen 15 mg/dL (7-18); Calcium 8.8 mg/dL (8.5-10.1); Carbon Dioxide 25 mmol/L (21-32); Chloride 109 mmol/L (98-107); GFR African American 155 mL/min; GFR Non-African American 128 mL/min; Glucose 125 mg/dL (74-106); Potassium 3.7 mmol/L (3.5-5.1); Sodium 141 mmol/L (136-145)
[2019-04-24 07:35] LABS: Alkaline Phosphatase 97 U/L (45-117); Bilirubin, Total 0.4 mg/dL (0.2-1.0); Total Protein 7.8 g/dL (6.4-8.2)
== END 2019-04-24 08:10 | disposition home or self-care (01) ==
LOC: ER 05:05
DX: R00.2 Palpitations (principal); N39.0 Urinary tract infection, site not specified; I10 Essential (primary) hypertension; E11.9 Type 2 diabetes mellitus without complications; E78.5 Hyperlipidemia, unspecified; Z79.899 Other long term (current) drug therapy; Z88.7 Allergy status to serum and vaccine
CPT/HCPCS: 36415; 80053; 81001; 84443; 84484; 85025; 93005

== ENCOUNTER 2020-11-15 19:59 | Emergency (ER) | payer OTHER ==
[~2020-11-15] VITALS: Ht 167.6 cm; Wt 72.6 kg
[2020-11-15] MEDS ORDERED: ACETAMINOPHEN 500 MG TAB PO ONE (21:15)
[2020-11-15 23:29] VITALS: BP 138/78
== END 2020-11-15 23:45 | disposition home or self-care (01) ==
LOC: EDBD 19:59 → ER 20:03
DX: S13.9XXA Sprain of joints and ligaments of unspecified parts of neck, initial encounter (principal); S46.912A Strain of unspecified muscle, fascia and tendon at shoulder and upper arm level, left arm, initial encounter; S46.911A Strain of unspecified muscle, fascia and tendon at shoulder and upper arm level, right arm, initial encounter; R07.89 Other chest pain; E11.9 Type 2 diabetes mellitus without complications; I10 Essential (primary) hypertension; E78.5 Hyperlipidemia, unspecified; Z86.73 Personal history of transient ischemic attack (TIA), and cerebral infarction without residual deficits; Z98.51 Tubal ligation status; V43.62XA Car passenger injured in collision with other type car in traffic accident, initial encounter; Y93.89 Activity, other specified; Y92.410 Unspecified street and highway as the place of occurrence of the external cause; Y99.8 Other external cause status
CPT/HCPCS: 71045; 72040; 73020; 73090; 73100; 73120; 73590; 93971

== ENCOUNTER 2021-03-29 15:21 | Emergency (ER) | payer OTHER ==
[~2021-03-29] VITALS: Ht 154.9 cm; Wt 79.4 kg
[2021-03-29] MEDS ORDERED: cloNIDine HCL 0.1 MG TAB PO ONE ×2 (16:45→18:00)
[2021-03-29 17:01] LABS: Basophils # (auto) 0 10 ^3/uL (0-0.2); Basophils % (auto) 0.8 % (0.0-2.0); Eosinophils # (auto) 0.1 10 ^3/uL (0-0.8); Eosinophils % (auto) 1.3 % (0.0-7.0); Hematocrit 36.6 % (36.0-46.0); Hemoglobin 12.5 g/dL (12.2-16.2); Lymphocytes # (auto) 1.3 10 ^3/uL (0.4-5.4); Lymphocytes % (auto) 25.1 % (10.0-50.0); Mean Corpuscular Hemoglobin 29.7 pg (28.0-32.0); Mean Corpuscular Hgb Conc. 34.2 g/dL (32.0-36.0); Mean Corpuscular Volume 86.8 fL (80.0-100.0); Monocytes # (auto) 0.3 10 ^3/uL (0-1.3); Monocytes % (auto) 5.8 % (0.0-12.0); Neutrophils # (auto) 3.5 10 ^3/uL (1.6-8.6); Red Blood Cells 4.21 10^6/uL (4.0-5.20); White Blood Cell 5.2 10^3/uL (4.4-10.8)
[2021-03-29 17:14] LABS: Albumin 3.7 g/dL (3.4-5.0); BUN/Creatinine Ratio 22.2; Calcium 8.7 mg/dL (8.5-10.1); Magnesium 2.8 mg/dL (1.6-2.6); Potassium 4.1 mmol/L (3.5-5.1)
[2021-03-29 17:22] LABS: Bilirubin, Total 0.4 mg/dL (0.2-1.0); Total Protein 7.7 g/dL (6.4-8.2)
[2021-03-29 18:29] VITALS: BP 148/87
== END 2021-03-29 18:32 | disposition home or self-care (01) ==
LOC: ER 15:25
DX: I10 Essential (primary) hypertension (principal); G44.229 Chronic tension-type headache, not intractable; E11.9 Type 2 diabetes mellitus without complications; I25.10 Atherosclerotic heart disease of native coronary artery without angina pectoris; E78.5 Hyperlipidemia, unspecified; Z86.73 Personal history of transient ischemic attack (TIA), and cerebral infarction without residual deficits; Z79.4 Long term (current) use of insulin; Z79.82 Long term (current) use of aspirin; Z79.899 Other long term (current) drug therapy; Z88.8 Allergy status to other drugs, medicaments and biological substances
CPT/HCPCS: 36415; 70450; 71045; 80053; 83735; 84484; 85025; 93005